=== PATIENT | female | born 1960 | race Caucasian/White ===

== ENCOUNTER → 2025-05-06 | Outpatient (CLI) | payer MEDICARE, MEDICAID ==
[~2025-05-06] MED LIST: ACET500C; ASPI81TA45; ATOR80TA59 PO; CELE1CAP4; LISI10TA4; LISI20TA33 PO; PLAV75TA2; PRIL20CA; RESTASIS; TRAM50TA2; TRIHEXYPHENIDYL; VICO5TAB
== END ==
LOC: M RAD 12:17
PROVIDERS: ATTEND Radiology Diagnostic Radiology
DX: L03.116 Cellulitis of left lower limb (principal)

== ENCOUNTER → 2025-05-08 | Outpatient (CLI) | payer MEDICARE, MEDICAID ==
[~2025-05-08] MED LIST changes: +ISOVUE-370 76% 100 ML VIAL As Ordered ONE
== END ==
LOC: M RAD 10:58
PROVIDERS: ATTEND Radiology Diagnostic Radiology
DX: I73.9 Peripheral vascular disease, unspecified (principal)

== ENCOUNTER → 2025-05-08 | Outpatient (POV) | payer MEDICARE, MEDICAID ==
[~2025-05-08] VITALS: Ht 157.5 cm; Wt 63.6 kg
[~2025-05-08] MED LIST changes: -ISOVUE-370 76% 100 ML VIAL As Ordered ONE
[2025-05-08 12:00] VITALS: BP 152/72; O2SAT 100
== END ==
LOC: M IRPOV 11:04
PROVIDERS: ATTEND Registered Nurse School
DX: I70.244 Atherosclerosis of native arteries of left leg with ulceration of heel and midfoot (principal); I70.248 Atherosclerosis of native arteries of left leg with ulceration of other part of lower leg; I70.201 Unspecified atherosclerosis of native arteries of extremities, right leg; Z79.899 Other long term (current) drug therapy; Z96.1 Presence of intraocular lens; Z87.891 Personal history of nicotine dependence
CPT/HCPCS: 82565; G0463